=== PATIENT | male | born 1965 | race Caucasian/White ===

== ENCOUNTER 2022-09-25 15:34 | Outpatient (CLI) | payer BC | END 2022-09-25 15:35 | disposition home or self-care (01) | LOC: SCSRAD 15:34 | PROVIDERS: ATTEND Physician Assistant | DX: S39.012A Strain of muscle, fascia and tendon of lower back, initial encounter (principal); M47.816 Spondylosis without myelopathy or radiculopathy, lumbar region; Q76.49 Other congenital malformations of spine, not associated with scoliosis | CPT/HCPCS: 72100 ==

== ENCOUNTER 2022-12-09 10:40 | Outpatient (CLI) | payer BC | END 2022-12-09 10:41 | disposition home or self-care (01) | LOC: SCSRAD 10:40 | PROVIDERS: ATTEND Physician Assistant | DX: M24.811 Other specific joint derangements of right shoulder, not elsewhere classified (principal) ==

== ENCOUNTER 2023-03-30 08:29 | Emergency (ER) | payer BC ==
[2023-03-30] MEDS ORDERED: Cyclobenzaprine 10 MG TAB ONE (09:26)
[2023-03-30] MEDS ORDERED: Ketorolac Tromethamine 30 MG/ML VIAL ONE (09:26)
[2023-03-30] MEDS ORDERED: Acetaminophen 500 MG TAB ONE (09:27)
== END 2023-03-30 11:23 | disposition home or self-care (01) ==
LOC: ERS 08:29
DX: S39.012A Strain of muscle, fascia and tendon of lower back, initial encounter (principal); I10 Essential (primary) hypertension; Z79.899 Other long term (current) drug therapy
CPT/HCPCS: 96372; 99283; J1885